=== PATIENT | male | born 1975 | race Caucasian/White ===

== ENCOUNTER 2020-12-30 10:16 | Outpatient (CLI) | payer OTHER, SELFPAY ==
[2020-12-30 12:13] LABS: SARS-CoV-2 RNA PCR Negative (Negative)
== END 2020-12-30 10:17 | disposition home or self-care (01) ==
LOC: CHSLAB 10:20
PROVIDERS: PCP Nurse Practitioner Family; Visit Provider Nurse Practitioner Family
DX: Z20.822 Contact with and (suspected) exposure to COVID-19 (principal)
CPT/HCPCS: C9803; U0003; U0005